=== PATIENT | male | born 1950 | race Caucasian/White ===

== ENCOUNTER 2017-05-30 19:58 | Observation (INO) ==
[2017-05-30 21:27] LABS: Basophils # 0.1 K/mcL (0.0-0.2); Basophils % 0.9 %; Eosinophils # 0.3 K/mcL (0.0-0.6); Eosinophils % 2.4 %; Hematocrit 53.4 % (37.5-50.1); Hemoglobin 17.6 g/dL (12.9-16.9); Immature Granulocytes % 0.3 % (0-4); Immature Platelets 3.7 % (1.1-6.1); Lymphocytes # 3.9 K/mcL (0.6-4.6); Lymphocytes % 33.9 %; Mean Corpuscular Hemoglobin 30.9 pg (28.0-33.3); Mean Corpuscular Volume 93.8 fL (83.0-100.0); Mean Platelet Volume 9.7 fL (9.4-12.4); Monocytes # 0.9 K/mcL (0.0-1.3); Monocytes % 7.4 %; Neutrophils # 6.3 K/mcL (1.6-8.9); Platelet Count 238 K/mcL (140-400); Red Blood Count 5.69 M/mcL (4.19-5.50); Red Cell Distribution Width 13.4 % (11.5-14.5); Segmented Neutrophils % 55.1 %
[2017-05-30 21:41] LABS: BUN/Creatinine Ratio 16 (6-26); Blood Urea Nitrogen 14 mg/dL (8-23); Carbon Dioxide 33 mEq/L (23-29); Chloride 101 mEq/L (98-107); Glucose 92 mg/dL (70-105); Osmolality,Calculated 296 (280-300); Potassium 3.8 mEq/L (3.5-5.1); Sodium 143 mEq/L (136-145); eGFR For African Americans > 60 (> 60); eGFR For Non-African Americans > 60 (> 60)
[2017-05-30] MEDS ORDERED: Aspirin 325 MG TABLET PO ONE (21:42)
--- NOTE | 2017-05-30 22:13 | Emergency Department Note ---
Disposition Clinical Impression: Stable angina Disposition: Admitted As Inpatient Condition: Fair Referrals: Ihsan Patino MD [Primary Care Provider] - Forms: ED Satisfaction Letter Time of Disposition: 22:11 Chest Pain HPI - General Chief Complaint: ED Chest Pain Stated Complaint: Chest Pain Time Seen by Provider: 05/30/17 21:14 Source: patient Mode of arrival: ambulatory Limitations: no limitations Vital Signs Reviewed: Yes Nursing Notes Reviewed: Yes - History of Present Illness HPI Narrative: Patient presenting in the ED with the chief complaint of chest pain. Patient has a history of chest discomfort, but his last heart catheter was many years ago, which showed diffuse vessel disease, but reportedly only 30%. Patient states that over the last month or 2. He has had gradually increasing exertional chest discomfort. He states in the last week to become increasingly more intense and more frequent. He gets a centralized chest pressure and heaviness that radiates to his left arm and left jaw. He sometimes gets diaphoretic and nauseated at times. It does resolve with rest. Severity scale (1-10): 2 - Related Data Home Medications Medication Instructions Recorded Confirmed ALPRAZolam [Xanax 0.5 MG Tablet] 0.5 mg PO TID PRN 05/30/17 05/30/17 Aclidinium [place] [Tudorza 400 mcg IH BID 05/30/17 05/30/17 Pressair] Aspirin Enteric Coated [Aspirin EC] 81 mg PO DAILY 05/30/17 05/30/17 Carvedilol 12.5 mg PO BID 05/30/17 05/30/17 Duloxetine HCl [Cymbalta] 60 mg PO DAILY 05/30/17 05/30/17 Ezetimibe [Zetia] 10 mg PO DAILY 05/30/17 05/30/17 Fluticasone/Salmeterol [Advair 1 each IH BID 05/30/17 05/30/17 250-50 Diskus] Losartan/HCTZ [Hyzaar 50-12.5 1 each PO BID 05/30/17 05/30/17 Tablet] Omeprazole [PriLOSEC] 20 mg PO DAILY 05/30/17 05/30/17 Potassium Chloride [K-Tab ER] 10 meq PO DAILY 05/30/17 05/30/17 amLODIPine [Norvasc] 5 mg PO DAILY 05/30/17 05/30/17 Allergies Allergy/AdvReac Type Severity Reaction Status Date / Time gabapentin AdvReac Muscle Pain Verified 05/30/17 20:13 All systems ED: reviewed and negative except as stated. Constitutional: Denies: fever Cardiovascular: Reports: chest pain Gastrointestinal: Denies: abdominal pain Musculoskeletal: Reports: back pain (Chronic) Chest Pain PMH - Past Medical History Medical history: Reports: arthritis, COPD Psychiatric history: Reports: anxiety - Social History Smoking Status: Current every day smoker Alcohol use: Reports: none Drug use: Reports: none Physical Exam - General Limitations: no limitations General appearance: alert, in no apparent distress - Head Head exam: atraumatic, normocephalic, normal inspection - Chest Chest inspection: Present: normal inspection, symmetric chest wall rise - Respiratory Respiratory exam: Present: normal lung sounds bilaterally - Cardiovascular Cardiovascular exam: Present: regular rate, normal rhythm, normal heart sounds - Abdominal Exam Abdominal exam: Present: soft, Non-Tender. Absent: tenderness, distention, guarding, rebound, rigidity - Extremities Exam Extremities exam: Present: normal inspection, full ROM. Absent: tenderness, pedal edema - Neurological Exam Neurological exam: Present: alert, oriented X3 - Psychiatric Psychiatric exam: Present: normal affect, normal mood - Skin Skin exam: Present: warm, dry, intact, normal color Course Course Narrative: Patient presenting with chest pain. Concerning story. We will workup and admit. EKG normal. Vital Signs Temperature 97.9 F 05/30/17 20:08 Pulse Rate 83 05/30/17 20:08 Respiratory Rate 20 05/30/17 20:08 Blood Pressure 147/78 05/30/17 20:08 O2 Sat by Pulse Oximetry 95 05/30/17 20:08 Temperature 97.9 F 05/30/17 20:08 Pulse Rate 83 05/30/17 21:49 Respiratory Rate 18 05/30/17 21:49 Blood Pressure 141/72 05/30/17 21:49 O2 Sat by Pulse Oximetry 93 05/30/17 21:49 Oxygen Delivery Oxygen Delivery Room Air Chest Pain - Medical Records Medical records reviewed: Yes I reviewed the patient's medical records. - Lab Data Lab results reviewed: Yes I reviewed the patient's lab results. Result diagrams: 05/30/17 21:15 05/30/17 21:15 Lab Results 05/30/17 05/30/17 05/30/17 Range/Units 21:15 21:15 21:15 WBC 11.5 H (4.3-11.1) K/mcL RBC 5.69 H (4.19-5.50) M/mcL Hgb 17.6 H (12.9-16.9) g/dL Hct 53.4 H (37.5-50.1) % MCV 93.8 (83.0-100.0) fL MCH 30.9 (28.0-33.3) pg MCHC 33.0 (31.6-35.5) g/dL RDW 13.4 (11.5-14.5) % Plt Count 238 (140-400) K/mcL MPV 9.7 (9.4-12.4) fL Immature Gran % 0.3 (0-4) % Seg Neutrophils % 55.1 % Lymphocytes % 33.9 % Monocytes % 7.4 % Eosinophils % 2.4 % Basophils % 0.9 % Neutrophils # 6.3 (1.6-8.9) K/mcL Lymphocytes # 3.9 (0.6-4.6) K/mcL Monocytes # 0.9 (0.0-1.3) K/mcL Eosinophils # 0.3 (0.0-0.6) K/mcL Basophils # 0.1 (0.0-0.2) K/mcL Immature Plt Fraction 3.7 (1.1-6.1) % Sodium 143 (136-145) mEq/L Potassium 3.8 (3.5-5.1) mEq/L Chloride 101 (98-107) mEq/L Carbon Dioxide 33 H (23-29) mEq/L BUN 14 (8-23) mg/dL Creatinine 0.85 (0.70-1.30) mg/dL Est GFR ( Amer) > 60 (> 60) Est GFR (Non-Af Amer) > 60 (> 60) BUN/Creatinine Ratio 16 (6-26) Glucose 92 (70-105) mg/dL Calculated Osmolality 296 (280-300) Calcium 9.0 (8.6-10.3) mg/dL Troponin I < 0.03 (< 0.04) ng/mL - Radiology Data Radiology results reviewed: Yes I reviewed the patient's radiology results. Chest X-Ray 05/30/17 20:21 IMPRESSION: Stable chest with no new acute process. D/ / 05/30/2017 21:24:25 Abebe Chun MD / Natasha Hughes Interpreting Provider: Abebe Chun MD - EKG Data EKG attestation: Yes I reviewed and interpreted this EKG. EKG results narrative: Sinus rhythm, rate 83,. 157, QRS 103, QTc 424, left axis deviation, frequent PVCs, unchanged from previous. Heart Score - Score History: Highly Suspicious EKG: Non Specific repolarisation Disturbance Age: 45-65 Risk Factors: Equal/Greater than 3 risk factor or history of atherosclerotic disease Troponin: Less than normal limit HEART Score Total: 6 S.B.A.R. - S.B.A.R. Situation: Demographics, MOA Background: Presenting Complaint, Relevant PMH, Meds, & Allergies Assessment: Vital Signs, Course and respsone to treatment, Exam Concerns, Patient/Family Expectation, Pertinant Lab Results, Outstanding Labs Recommendation: Recommendation based on pending studies, treatments, or consults S.B.A.RDean Report Given to: Dr. Jordon Bellamy Repor Time: 22:11 Attestation Statement - Attestation Attestation: I, Mick Avila MD, personally evaluated this patient and discussed their management with the resident physician. I reviewed the resident's note and agree with the documented findings, medical decision making, and plan of care. 66-year-old male presents to the emergency department with a complaint of increasing chest pain especially over the last week. He describes it as a dull pressure in the left chest. The pain is associated with exertion and relieved with rest. He does have shortness of breath and diaphoresis associated with the pain. The pain radiates to the left jaw and left shoulder and down the left arm. On examination patient is a well-developed well-nourished male in no acute distress. He is alert and oriented 3. There is no cyanosis or diaphoresis. Chest is nontender to palpation. Breath sounds are clear and equal bilaterally. Heart regular rate and rhythm with frequent ectopy. Abdomen is soft and nontender with normal bowel sounds. Labs reviewed. Troponin normal. Chest x-ray negative. EKG shows a sinus rhythm with frequent PVCs in a trigeminy pattern. No acute ischemic changes. The hospitalist, Dr. Ruvalcaba, was consulted and accepted admission of the patient.
[2017-05-30] MEDS ORDERED: ALPRAZolam 0.5 MG TABLET PO ONE (22:52)
[2017-05-31] MEDS ORDERED: Ondansetron 4 MG/2 ML VIAL IVP PRN (03:02)
[2017-05-31] MEDS ORDERED: Naloxone 0.4 MG/ML INJ IVP PRN (03:02)
--- NOTE | 2017-05-31 03:02 | Internal Med Progress Note ---
Date of Encounter: 05/31/17 Time of Encounter: 03:02 - Constitutional Vitals: Temp Pulse Resp BP Pulse Ox 98.2 F 80 14 173/97 93 05/30/17 23:21 05/30/17 23:21 05/30/17 23:21 05/30/17 23:21 05/30/17 23:21 Internal Medicine: Result - Labs CBC & Chem 7: 05/30/17 21:15 05/30/17 21:15 Consult Discharge Plan - Plan Referrals: Ihsan Patino MD [Primary Care Provider] -
--- NOTE | 2017-05-31 03:22 | Internal Med History&Physical ---
Date of Encounter: 05/31/17 Time of Encounter: 02:00 Assessment and Plan (1) CAD (coronary artery disease) Current visit: Yes Status: Acute Aspirin 325 mg daily, nitroglycerin 0.4 sublingual every 5 minutes as needed. Check fasting lipid profile next a.m., monitor for any acute EKG changes. Counselling on tobacco cessation. With the patient's significant risk factors , check cardiac enzymes 2 , if they are negative would order stress test Qualifiers: Coronary Disease-Associated Artery/Lesion type: [place] artery [place] vs. transplanted heart: [place] heart Associated angina: with stable angina Qualified Code(s): I25.118 - Atherosclerotic heart disease of [place] coronary artery with other forms of angina pectoris (2) Chest pain Current visit: Yes Status: Acute Qualifiers: Chest pain type: chest pain due to myocardial ischemia Ischemic chest pain type: stable angina pectoris Qualified Code(s): I20.8 - Other forms of angina pectoris (3) Tobacco abuse Current visit: Yes Status: Acute add Nicotin patch (4) Stable angina Current visit: Yes Status: Acute (5) Anxiety Current visit: Yes Status: Acute Resume home medication Internal Medicine - H&P: HPI Chief complaint: Chest pain and shortness of breath Admitted From: Emergency Dept History of present illness: Mr. Kim is a 66 year old male with past medical history of coronary artery disease, significant family history of coronary artery disease and tobacco use. Patient stated he had cardiac catheterization done about 20 years ago which showed that she had recent blockage in 2 artery. Patient does not know exactly the result. Patient stated he was in stable condition until last week. Patient stated he started to have dyspnea on mild exertion. Yesterday he started having left-sided chest pain radiating to his left upper extremities and neck associated with dizziness. Patient denies any exacerbating factors or relieving factors for his pain . Past Med Surg Social Fam HX - Past Medical History Medical history: arthritis, COPD Psychiatric history: anxiety - Social History Smoking Status: Current every day smoker Smokeless Tobacco Status: No Alcohol use: none Drug use: none - Family History Father Age: 77 Living Status: Hx Family Cardiac Disorders: Yes Internal Medicine - H&P: Meds ALPRAZolam [Xanax 0.5 MG Tablet] 0.5 mg PO TID PRN 05/30/17 [History] Aclidinium [place] [Tudorza Pressair] 400 mcg IH BID 05/30/17 [History] Aspirin Enteric Coated [Aspirin EC] 81 mg PO DAILY 05/30/17 [History] Carvedilol 12.5 mg PO BID 05/30/17 [History] Duloxetine HCl [Cymbalta] 60 mg PO DAILY 05/30/17 [History] Ezetimibe [Zetia] 10 mg PO DAILY 05/30/17 [History] Fluticasone/Salmeterol [Advair 250-50 Diskus] 1 each IH BID 05/30/17 [History] Losartan/HCTZ [Hyzaar 50-12.5 Tablet] 1 each PO BID 05/30/17 [History] Omeprazole [PriLOSEC] 20 mg PO DAILY 05/30/17 [History] Potassium Chloride [K-Tab ER] 10 meq PO DAILY 05/30/17 [History] amLODIPine [Norvasc] 5 mg PO DAILY 05/30/17 [History] 3 Allergy/AdvReac Type Severity Reaction Status Date / Time gabapentin AdvReac Muscle Pain Verified 05/30/17 20:13 All Systems PM: A 10-system review of systems was performed and is negative for pertinent findings except as documented above in the HPI. - Constitutional Vitals: Temp Pulse Resp BP Pulse Ox 98.4 F 66 16 150/67 92 05/31/17 03:09 05/31/17 03:09 05/31/17 03:09 05/31/17 03:09 05/31/17 03:09 - Head Head exam: Present: atraumatic, normocephalic - Neck Neck exam general surgery: Present: supple, trachea midline. Absent: lymphadenopathy - Cardiovascular Cardiovascular exam: Present: RRR, +S1, +S2. Absent: diastolic murmur, gallop, rubs, systolic murmur - GI/Abdominal GI/Abdominal exam: Present: normal bowel sounds, soft, no peritoneal signs. Absent: distended, tenderness - Extremities Exam Extremities exam: Present: warm, radial pulses palpable and symmetrical. Absent : calf tenderness, cyanotic, pedal edema - Neurological Exam Neurological exam: Present: CN II-XII intact, oriented X3, no focal deficits. Absent: pronater drift, facial droop, speech deficit - Skin Skin exam: Present: dry, intact Internal Med - H&P Results - Labs CBC & Chem 7: 05/30/17 21:15 05/30/17 21:15
[2017-05-31 03:40] LABS: Basophils # 0.1 K/mcL (0.0-0.2); Basophils % 0.7 %; Eosinophils # 0.3 K/mcL (0.0-0.6); Hematocrit 51.6 % (37.5-50.1); Immature Granulocytes % 0.4 % (0-4); Lymphocytes # 3.6 K/mcL (0.6-4.6); Lymphocytes % 37.2 %; Mean Corpuscular HGB Conc 32.9 g/dL (31.6-35.5); Mean Corpuscular Hemoglobin 31.1 pg (28.0-33.3); Mean Corpuscular Volume 94.5 fL (83.0-100.0); Mean Platelet Volume 9.6 fL (9.4-12.4); Monocytes # 0.7 K/mcL (0.0-1.3); Monocytes % 7.5 %; Neutrophils # 4.9 K/mcL (1.6-8.9); Platelet Count 185 K/mcL (140-400); Red Blood Count 5.46 M/mcL (4.19-5.50); Red Cell Distribution Width 13.4 % (11.5-14.5); Segmented Neutrophils % 51.2 %
[2017-05-31 04:07] LABS: Magnesium 1.9 mg/dL (1.6-2.6); Phosphorous 3.8 mg/dL (2.7-4.5)
[2017-05-31 04:09] LABS: BUN/Creatinine Ratio 16 (6-26); Blood Urea Nitrogen 13 mg/dL (8-23); Calcium 8.8 mg/dL (8.6-10.3); Carbon Dioxide 35 mEq/L (23-29); Chloride 101 mEq/L (98-107); Glucose 98 mg/dL (70-105); Osmolality,Calculated 296 (280-300); Potassium 3.6 mEq/L (3.5-5.1); Sodium 143 mEq/L (136-145); eGFR For African Americans > 60 (> 60); eGFR For Non-African Americans > 60 (> 60)
[2017-05-31] MEDS: Acetaminophen 325 MG TABLET PO PRN ×2 (04:16→18:41)
[2017-05-31] MEDS ORDERED: Regadenoson 0.4 MG/5 ML SYRINGE IVP ONE (07:38)
[2017-05-31] MEDS ORDERED: (Ezetimibe [Zetia] 10 MG) PO SCH (09:00)
[2017-05-31] MEDS: Losartan/HCTZ 50-12.5 TABLET PO SCH ×2 (09:39→20:50)
[2017-05-31] MEDS: TUDORZA PRESSAIR IH SCH ×2 (09:40→20:55)
[2017-05-31] MEDS: amLODIPine 5 MG TABLET PO SCH (09:50)
[2017-05-31] MEDS: Aspirin Enteric Coated 81 MG Tablet PO SCH (09:50)
[2017-05-31] MEDS: ALPRAZolam 0.5 MG TABLET PO PRN ×2 (09:50→17:52)
[2017-05-31] MEDS: Budesonide/Formoterol 80/4.5 MDI IH SCH ×2 (11:52→19:39)
--- NOTE | 2017-05-31 17:56 | Internal Med Progress Note ---
Date of Encounter: 05/31/17 Time of Encounter: 09:40 - Assessment and plan (1) Stable angina Current Visit: Yes Status: Acute Assessment and plan: Plan as above. (2) CAD (coronary artery disease) Current Visit: Yes Status: Chronic Assessment and plan: Patient reports prior LHC. He reports 2 vessel disease. She has extensive family history of [place], CAD, cardiac arrest. Discussed smoking cessation with patient. States he will quit cold turkey. Continue Norvasc, aspirin, Coreg, will add statin. A1c is ordered for morning. Qualifiers: Coronary Disease-Associated Artery/Lesion type: [place] artery [place] vs. transplanted heart: [place] heart Associated angina: with stable angina Qualified Code(s): I25.118 - Atherosclerotic heart disease of [place] coronary artery with other forms of angina pectoris (3) Chest pain Current Visit: Yes Status: Acute Assessment and plan: 2-3 week history of dizziness, dyspnea on exertion. 2 days ago, patient had left chest pain with diaphoresis and nausea. Patient presented to the emergency department due to 's coercion. She denies chest pain since arrival. Troponins are negative 3. Chest x-ray was negative. We have added aspirin and statin to his medication regimen. He will continue his beta kane and his other home medications. Strong family history of coronary artery disease, [place], cardiac arrest. Patient had a stress test with frequent PVCs. Gaited EF of 43%. There is a primarily fixed perfusion defect that was worse on resting, consistent with artifact. Perfusion imaging was negative for ischemia. Patient reports that he has had a murmur since he was a young child that was never fixed. Echocardiogram is ordered, completed, not read. Patient I discussed at length necessary risk modifications. Continue telemetry Consider cardiology consult based on results of echocardiogram Encouraged smoking cessation Monitor labs and vitals. Qualifiers: Chest pain type: chest pain due to myocardial ischemia Ischemic chest pain type: stable angina pectoris Qualified Code(s): I20.8 - Other forms of angina pectoris (4) Tobacco abuse Current Visit: Yes Status: Chronic Assessment and plan: Patient denies need for nicotine patch here or at home after discharge. Patient denies desire for smoking cessation. (5) Anxiety Current Visit: Yes Status: Chronic Assessment and plan: Chronic. Continue home medications. - Subjective Interval history: Patient reports dizziness, nausea, MILAN for 2-3 weeks. Today patient began having left-sided chest pain radiating to left upper extremities and neck, with dizziness and diaphoresis. He denied any exacerbating or relieving factors. is concerned about his electrolytes and requested that we give him bicarbonate to keep the potassium in his kidneys. Patient states that he is fine and has denied chest pain today. He is aware that his stress test is negative and that we are waiting on the echocardiogram to be read. He is aware that it is now 6 PM, it will not be read tonight he will stay overnight and go in the morning if it is okay. Patient reports cardiac murmur since he was a child, he was never repaired. - Constitutional Vitals: Temp Pulse Resp BP Pulse Ox 98.1 F 84 18 155/85 94 05/31/17 16:06 05/31/17 16:06 05/31/17 16:06 05/31/17 16:06 05/31/17 16:06 General appearance: Present: cooperative, A&O X 3, pleasant, no acute distress, answers questions appropriately. Absent: severe distress - Head Head exam: Present: atraumatic, normal inspection, normocephalic - Eye Eye exam: Present: normal appearance, conjuntiva pink, sclera anicteric - Neck Neck exam general surgery: Present: supple, trachea midline. Absent: lymphadenopathy, tenderness - Respiratory Respiratory exam: Present: CTAB. Absent: accessory muscle use, chest wall tenderness, decreased breath sounds, rales, respiratory distress, rhonchi, wheezes - Cardiovascular Cardiovascular exam: Present: RRR, +S1, +S2. Absent: diastolic murmur, gallop, rubs, systolic murmur Additional comments: 2/6 murmur heard at apex and left lower sternal border. - GI/Abdominal GI/Abdominal exam: Present: normal bowel sounds, soft, no peritoneal signs. Absent: distended, hepatomegaly, tenderness - Extremities Exam Extremities exam: Present: normal capillary refill, warm, radial pulses palpable and symmetrical. Absent: calf tenderness, cyanotic, pedal edema, tenderness - Neurological Exam Neurological exam: Present: alert, oriented X3, no focal deficits. Absent: facial droop, speech deficit - Skin Skin exam: Present: dry, intact, normal color, warm. Absent: rash Internal Medicine: Result - Labs CBC & Chem 7: 05/31/17 03:27 05/31/17 03:27 Labs: Short CBC 05/31/17 Range/Units 03:27 WBC 9.6 (4.3-11.1) K/mcL Hgb 17.0 H (12.9-16.9) g/dL Hct 51.6 H (37.5-50.1) % Plt Count 185 (140-400) K/mcL Neutrophils # 4.9 (1.6-8.9) K/mcL BMP 05/31/17 03:27 Sodium 143 Potassium 3.6 Chloride 101 Carbon Dioxide 35 H BUN 13 Creatinine 0.79 Glucose 98 Calcium 8.8 Cardiac Enzymes 05/31/17 Range/Units 03:27 Troponin I < 0.03 (< 0.04) ng/mL Consult Discharge Plan - Plan Referrals: Ihsan Patino MD [Primary Care Provider] - 06/07/17 4:00 pm
[2017-06-01] MEDS: ALPRAZolam 0.5 MG TABLET PO PRN (04:47)
[2017-06-01 05:32] LABS: Hemoglobin A1C 5.4 %
[2017-06-01 05:43] LABS: BUN/Creatinine Ratio 16 (6-26); Blood Urea Nitrogen 12 mg/dL (8-23); Calcium 8.5 mg/dL (8.6-10.3); Carbon Dioxide 34 mEq/L (23-29); Chloride 104 mEq/L (98-107); Glucose 105 mg/dL (70-105); Osmolality,Calculated 296 (280-300); Potassium 3.2 mEq/L (3.5-5.1); Sodium 143 mEq/L (136-145); eGFR For African Americans > 60 (> 60); eGFR For Non-African Americans > 60 (> 60)
[2017-06-01 06:00] LABS: Basophils # 0.1 K/mcL (0.0-0.2); Basophils % 0.8 %; Eosinophils # 0.2 K/mcL (0.0-0.6); Eosinophils % 2.4 %; Hematocrit 52.8 % (37.5-50.1); Hemoglobin 17.2 g/dL (12.9-16.9); Immature Granulocytes % 0.3 % (0-4); Lymphocytes # 2.4 K/mcL (0.6-4.6); Lymphocytes % 26.7 %; Mean Corpuscular HGB Conc 32.6 g/dL (31.6-35.5); Mean Corpuscular Hemoglobin 30.7 pg (28.0-33.3); Mean Corpuscular Volume 94.3 fL (83.0-100.0); Monocytes # 0.8 K/mcL (0.0-1.3); Monocytes % 9.1 %; Neutrophils # 5.3 K/mcL (1.6-8.9); Platelet Count 199 K/mcL (140-400); Red Cell Distribution Width 13.2 % (11.5-14.5); Segmented Neutrophils % 60.7 %
[2017-06-01] MEDS: Aspirin Enteric Coated 81 MG Tablet PO SCH (08:03)
[2017-06-01] MEDS: Losartan/HCTZ 50-12.5 TABLET PO SCH (08:03)
[2017-06-01] MEDS: amLODIPine 5 MG TABLET PO SCH (08:03)
[2017-06-01] MEDS ORDERED: hydrOXYzine pamoate 25 MG CAPSULE PO ONE (08:11)
--- NOTE | 2017-06-01 09:21 | Discharge Summary ---
Date of Encounter: 06/01/17 Time of Encounter: 08:10 - Discharge Diagnosis (1) Chest pain Priority: Primary Status: Acute Comments: 2-3 week history of dizziness, dyspnea on exertion. 2 days ago, patient had left chest pain with diaphoresis and nausea. Patient presented to the emergency department due to 's coercion. He denies chest pain since arrival. Troponins are negative 3. Chest x-ray was negative. We have added aspirin and statin to his medication regimen. He will continue his beta kane and his other home medications. Strong family history of coronary artery disease, [place], cardiac arrest. Patient had a stress test with frequent PVCs. Gated EF of 43%. There is a primarily fixed perfusion defect that was worse on resting, consistent with artifact. Perfusion imaging was negative for ischemia. Patient reports that he has had a murmur since he was a young child that was never fixed. Echocardiogram with preserved ejection fraction of 55-60%, mild LV DD and no significant valvular dysfunction. Patient I discussed at length necessary risk modifications. Qualifiers: Chest pain type: chest pain due to myocardial ischemia Ischemic chest pain type: stable angina pectoris Qualified Code(s): I20.8 - Other forms of angina pectoris (2) Stable angina Priority: Primary Status: Acute Comments: Plan as above. (3) CAD (coronary artery disease) Priority: Primary Status: Chronic Comments: Patient reports prior LHC at another facility. He reports 2 vessel disease. She has extensive family history of [place], CAD, cardiac arrest. Discussed smoking cessation with patient. States he will quit cold turkey. Continue Norvasc, aspirin, Coreg, Zetia at home. A1c 5.4%. Qualifiers: Coronary Disease-Associated Artery/Lesion type: [place] artery [place] vs. transplanted heart: [place] heart Associated angina: with stable angina Qualified Code(s): I25.118 - Atherosclerotic heart disease of [place] coronary artery with other forms of angina pectoris (4) Tobacco abuse Priority: Primary Status: Chronic Comments: Chronic. Pt has declined nicotine replacement therapy here, and declines for discharge. Smoking cessation counseling completed. (5) Anxiety Priority: Primary Status: Chronic Comments: Pt reports increased anxiety today due to being hospitalized and not having results of echo yet. He states that his doctor told him that he had to choose between his pain medication and his anxiety medication and he chose the pain medication. Anxiety has increased. Pt takes Xanax 0.5mg TID. Continue at home. - Discharge Medications Home Medications: ALPRAZolam [Xanax 0.5 MG Tablet] 0.5 mg PO TID PRN 05/30/17 [History] Aclidinium [place] [Tudorza Pressair] 400 mcg IH BID 05/30/17 [History] Aspirin Enteric Coated [Aspirin EC] 81 mg PO DAILY 05/30/17 [History] Carvedilol 12.5 mg PO BID 05/30/17 [History] Duloxetine HCl [Cymbalta] 60 mg PO DAILY 05/30/17 [History] Ezetimibe [Zetia] 10 mg PO DAILY 05/30/17 [History] Fluticasone/Salmeterol [Advair 250-50 Diskus] 1 each IH BID 05/30/17 [History] Losartan/HCTZ [Hyzaar 50-12.5 Tablet] 1 each PO BID 05/30/17 [History] Omeprazole [PriLOSEC] 20 mg PO DAILY 05/30/17 [History] Potassium Chloride [K-Tab ER] 10 meq PO DAILY 05/30/17 [History] amLODIPine [Norvasc] 5 mg PO DAILY 05/30/17 [History] Allergies/Adverse Reactions: 3 Allergy/AdvReac Type Severity Reaction Status Date / Time gabapentin AdvReac Muscle Pain Verified 05/30/17 20:13 Procedures/tests Complete & Pending: Procedures Performed prior 72 hours Category Date Time Status NM brandi perf SPECT multi [NM] Routine Exams 05/31/17 03:14 Taken EV echocardiogram Routine Y 05/31/17 10:13 Completed SP pharm nuclear stress Routine Y 05/31/17 03:13 Completed Date of admission: 05/30/17 22:26 Primary care physician: Ihsan Patino MD Discharging clinician: Kasandra Luther Anticipated date of discharge: 06/01/17 - Patient Status Disposition: Home, Self-Care Condition: Good Functional capacity at discharge: independent ambulation Overall status at discharge: patient is back to baseline - Discharge Instructions Follow Up With: Ihsan Patino MD [Primary Care Provider] - 06/07/17 4:00 pm Additional Instructions: Please follow up with Dr. Patino in the next 7-10 days for a follow up visit. Please stop smoking. Return to the ER as needed for any other problems or concerns. Resume your normal home medications, resume diet and activities as tolerated. - Diet and Activity Activity: increase activity as tolerated Diet: advance to your usual diet Hospital course: Mr. Kim is a 66 year old male with PMH of anxiety, CAD, tobacco use, HTN, HLD. Presents to the ED with c/o chest pain. Pt remained pain free throughout visit. CXR negative, troponins negative, stress test negative. Echo showed preserved EF with no significant valvular dysfunction A!C WNL, lipid panel WNL. Pt's vitals and labs were stable and WNL. He remained chest pain free and is stable for discharge. Time spent discussing smoking cessation with patient: 3 to 10 minutes - Time Spent with Patient Total time spent providing and/or coordinating discharge services: Less than 30 minutes - Constitutional Vitals: Temp Pulse Resp BP Pulse Ox 98.0 F 62 16 175/87 92 06/01/17 07:40 06/01/17 07:40 06/01/17 07:40 06/01/17 07:40 06/01/17 07:40 General appearance: Present: cooperative, A&O X 3, pleasant, no acute distress, answers questions appropriately. Absent: severe distress - Head Head exam: Present: atraumatic, normal inspection, normocephalic - Eye Eye exam: Present: normal appearance, conjuntiva pink, sclera anicteric - Neck Neck exam general surgery: Present: normal inspection, supple, trachea midline. Absent: lymphadenopathy, tenderness - Respiratory Respiratory exam: Present: decreased breath sounds, CTAB. Absent: accessory muscle use, chest wall tenderness, rales, respiratory distress, rhonchi, wheezes - Cardiovascular Cardiovascular exam: Present: RRR, +S1, +S2. Absent: diastolic murmur, gallop, rubs, systolic murmur - GI/Abdominal GI/Abdominal exam: Present: normal bowel sounds, soft, no peritoneal signs. Absent: distended, hepatomegaly, tenderness - Extremities Exam Extremities exam: Present: normal capillary refill, normal inspection, warm, radial pulses palpable and symmetrical. Absent: calf tenderness, cyanotic, pedal edema, tenderness - Neurological Exam Neurological exam: Present: alert, oriented X3, no focal deficits. Absent: altered, facial droop, speech deficit - Skin Skin exam: Present: dry, intact, normal color, warm. Absent: rash
[2017-06-01 10:26] VITALS: BP 159/97
[2017-06-01] MEDS: Budesonide/Formoterol 80/4.5 MDI IH SCH (11:13)
== END 2017-06-01 11:11 | disposition home or self-care (01) ==
LOC: EMEROO 19:58 → 3BNU 19:58
PROVIDERS: ADMIT Family Medicine; ATTEND Registered Nurse